=== PATIENT | female | born 1965 | race Caucasian/White ===

== ENCOUNTER 2021-10-10 12:03 | Inpatient (IN) | payer MEDICARE, MEDICAID ==
[~2021-10-10] VITALS: Ht 162.6 cm; Wt 97.1 kg
[2021-10-10] MEDS ORDERED: SODIUM CHLORIDE 0.9% 1,000 ML IV ONE (13:45)
[2021-10-10] MEDS ORDERED: MECLIZINE 25MG TABLET PO ONE (13:45)
[2021-10-10] MEDS ORDERED: METOPROLOL TARTRATE 5MG/5ML VIAL IV ONE (13:45)
[2021-10-10 14:08] LABS: BASOPHILS % 0.5 % (0.0-2.0); EOSINOPHILS % 1.7 % (0.0-5.0); HEMATOCRIT. 36.9 % (36.0-48.0); HEMOGLOBIN. 12.8 g/dL (12.0-16.0); MEAN CORPUSCULAR HEMOGLOBIN 33.7 pg (28.0-32.0); MEAN CORPUSCULAR VOLUME 97.1 fL (81.0-99.0); MEAN PLATELET VOLUME 7.8 fl (7.4-10.4); MONOCYTES % 5.7 % (2.0-8.0); NEUTROPHILS % 76.1 % (40.0-76.0); PLATELET 145 x1000/uL (130-400); RED CELL DISTRIBUTION WIDTH 15.1 % (11.6-14.6)
[2021-10-10 16:25] LABS: CHLORIDE 113 mEq/L (98-107)
[2021-10-10 16:35] LABS: PARTIAL THROMBOPLASTIN TIME 34.2 sec (23.4-31.0); PROTHROMBIN TIME 29.5 sec (9.6-11.0)
[2021-10-10] MEDS ORDERED: WARFARIN SODIUM 4MG TABLET PO SCH (18:30)
[2021-10-10] MEDS ORDERED: METOPROLOL TARTRATE 50MG TABLET PO SCH (21:00)
[2021-10-11 01:00] VITALS: BP 95/46
[2021-10-11] MEDS ORDERED: SACU1TAB PO (01:36)
[2021-10-11] MEDS ORDERED: paracetamol PO (01:36)
[2021-10-11] MEDS ORDERED: WARF4TAB71 PO (01:36)
[2021-10-11] MEDS ORDERED: FOLI-43 PO (01:36)
[2021-10-11] MEDS ORDERED: SODI45SP7 NS (01:36)
[2021-10-11] MEDS ORDERED: CLOP75TA33 PO (01:36)
[2021-10-11] MEDS ORDERED: MAGN400T39 PO (01:36)
[2021-10-11] MEDS ORDERED: FERR325T6 PO (01:36)
[2021-10-11] MEDS ORDERED: ATOR20TA PO (01:36)
[2021-10-11] MEDS ORDERED: HYDR25TA PO (01:36)
[2021-10-11] MEDS ORDERED: POTA20TA82 PO (01:36)
[2021-10-11] MEDS ORDERED: ALBU6.7H15 IH (01:36)
[2021-10-11] MEDS ORDERED: METO-385 PO (01:36)
[2021-10-11] MEDS ORDERED: FURO-152 PO (02:03)
[2021-10-11] MEDS ORDERED: *PATIENT'S OWN MEDICATION STORAGE XX SCH (03:15)
[2021-10-11 03:40] VITALS: BP 108/39
[2021-10-11 08:00] VITALS: BP 109/71
[2021-10-11 08:47] LABS: PROTHROMBIN TIME 29.4 sec (9.6-11.0)
[2021-10-11] MEDS ORDERED: FOLIC ACID 1MG TABLET PO SCH (09:00)
[2021-10-11] MEDS ORDERED: CLOPIDOGREL 75MG TABLET PO SCH (09:00)
[2021-10-11] MEDS ORDERED: MEDICATION NOT ON FORMULARY EA (Sacubitril/Valsartan (Entresto 24 mg-26 mg Tablet) 1 EAC PO SCH (09:00)
[2021-10-11] MEDS ORDERED: POTASSIUM CHLORIDE 20MEQ TABLET SR PO SCH (09:00)
[2021-10-11] MEDS ORDERED: MEDICATION NOT ON FORMULARY EA (Magnesium Oxide (Magnesium) 400 MG) PO SCH (09:00)
[2021-10-11] MEDS ORDERED: FERROUS SULFATE 325MG TABLET PO SCH (09:00)
[2021-10-11] MEDS ORDERED: ATORVASTATIN CALCIUM 20MG TABLET PO SCH (09:00)
[2021-10-11] MEDS ORDERED: MAGNESIUM OXIDE 400MG TABLET PO SCH (09:00)
[2021-10-11] MEDS ORDERED: MEDICATION NOT ON FORMULARY EA (Ferrous Sulfate 325 MG) PO SCH (09:00)
[2021-10-11] MEDS: FUROSEMIDE 20MG TABLET PO SCH ×2 (10:29→17:19)
[2021-10-11] MEDS: ENTRESTO PO SCH ×2 (10:34→17:19)
[2021-10-11 12:00] VITALS: BP 105/52
[2021-10-11] MEDS ORDERED: ACETAMINOPHEN 325MG TABLET PO PRN (12:15)
[2021-10-11 16:00] VITALS: BP 121/75
[2021-10-11 17:33] VITALS: BP 121/75
[2021-10-11] MEDS ORDERED: WARFARIN SODIUM 4MG TABLET PO SCH (18:00)
== END 2021-10-11 18:20 | disposition home or self-care (01) | DRG 73 ==
LOC: ER 12:03 → EDBEDREQ 16:17 → EDBEDREQTM 16:17 → ENRESERV 22:50 → 6WST 10-11 01:32
PROVIDERS: ADMIT Internal Medicine; ATTEND Internal Medicine
DX: G90.8 Other disorders of autonomic nervous system (principal); I50.41 Acute combined systolic (congestive) and diastolic (congestive) heart failure; D68.9 Coagulation defect, unspecified; I48.91 Unspecified atrial fibrillation; E78.00 Pure hypercholesterolemia, unspecified; E78.5 Hyperlipidemia, unspecified; T45.515A Adverse effect of anticoagulants, initial encounter; D72.819 Decreased white blood cell count, unspecified; E87.8 Other disorders of electrolyte and fluid balance, not elsewhere classified; E66.9 Obesity, unspecified; I25.10 Atherosclerotic heart disease of native coronary artery without angina pectoris; E05.90 Thyrotoxicosis, unspecified without thyrotoxic crisis or storm; Z79.01 Long term (current) use of anticoagulants; Z82.49 Family history of ischemic heart disease and other diseases of the circulatory system; Y92.89 Other specified places as the place of occurrence of the external cause; Z68.36 Body mass index [BMI] 36.0-36.9, adult; Z95.1 Presence of aortocoronary bypass graft; Z95.2 Presence of prosthetic heart valve; Z91.14 Patient's other noncompliance with medication regimen; Z71.3 Dietary counseling and surveillance; I11.0 Hypertensive heart disease with heart failure
CPT/HCPCS: 36415; 71045; 80053; 83880; 84443; 84484; 85025; 93005; 93306; 99291; J3490; J7030

== ENCOUNTER 2021-11-18 22:18 | Emergency (ER) | payer MEDICARE, MEDICAID ==
[~2021-11-18] VITALS: Ht 160 cm; Wt 110.0 kg
[~2021-11-18 22:18] MED LIST: ALBU6.7H15 IH; ATOR20TA PO; CLOP75TA33 PO; FERR325T6 PO; FOLI-43 PO; FURO-152 PO; HYDR25TA PO; MAGN400T39 PO; METO-385 PO; POTA20TA82 PO; SACU1TAB PO; SODI45SP7 NS; WARF4TAB71 PO; paracetamol PO
[2021-11-18 22:35] VITALS: BP 165/94
[2021-11-18] MEDS ORDERED: AMOX-494 MT (23:25)
[2021-11-18] MEDS ORDERED: ACET-2708 MT (23:25)
[2021-11-18] MEDS ORDERED: ACETAMINOPHEN 325MG TABLET PO ONE (23:30)
[2021-11-18] MEDS ORDERED: AMOXICILLIN 500 MG CAPSULE PO ONE (23:30)
== END 2021-11-18 23:38 | disposition home or self-care (01) ==
LOC: ER 22:18
DX: J02.9 Acute pharyngitis, unspecified (principal); I11.9 Hypertensive heart disease without heart failure; I48.91 Unspecified atrial fibrillation; E78.00 Pure hypercholesterolemia, unspecified; I25.2 Old myocardial infarction; Z95.2 Presence of prosthetic heart valve; Z79.01 Long term (current) use of anticoagulants
CPT/HCPCS: 99283

== ENCOUNTER 2021-11-26 16:55 | Emergency (ER) | payer MEDICARE, MEDICAID ==
[~2021-11-26] VITALS: Ht 157.5 cm; Wt 91.0 kg
[~2021-11-26 16:55] MED LIST changes: +ACET-2708 MT; +AMOX-494 MT
[2021-11-26 17:00] VITALS: BP 136/70
[2021-11-26 18:08] LABS: CHLORIDE 107 mEq/L (98-107)
[2021-11-26 18:12] LABS: BASOPHILS % 0.8 % (0.0-2.0); EOSINOPHILS % 3.1 % (0.0-5.0); HEMATOCRIT. 36.3 % (36.0-48.0); HEMOGLOBIN. 12.1 g/dL (12.0-16.0); LYMPHOCYTES % 24.8 % (20.0-50.0); MEAN CORPUSCULAR VOLUME 95.5 fL (81.0-99.0); MEAN PLATELET VOLUME 7.3 fl (7.4-10.4); MONOCYTES % 7.5 % (2.0-8.0); NEUTROPHILS % 63.8 % (40.0-76.0); PLATELET 154 x1000/uL (130-400); RED CELL DISTRIBUTION WIDTH 15.6 % (11.6-14.6)
[2021-11-26 18:14] LABS: INR 1.8; PROTHROMBIN TIME 18.1 sec (9.6-11.0)
== END 2021-11-26 20:57 | disposition home or self-care (01) ==
LOC: ER 16:55
DX: K64.4 Residual hemorrhoidal skin tags (principal); I25.2 Old myocardial infarction; I48.91 Unspecified atrial fibrillation; E78.00 Pure hypercholesterolemia, unspecified; Z98.890 Other specified postprocedural states; Z79.899 Other long term (current) drug therapy
CPT/HCPCS: 36415; 71045; 80053; 83880; 84484; 85025; 93005; 99285